=== PATIENT | female | born 1940 | race Caucasian/White ===

== ENCOUNTER 2021-02-08 06:40 | Day surgery (SDC) | payer MEDICARE, OTHER ==
[2021-02-08] VITALS (10 sets, daily range): BP systolic 142–156; BP diastolic 65–81
[~2021-02-08] VITALS: Ht 165.1 cm; Wt 89.5 kg
[2021-02-08] MEDS ORDERED: sodium bicarbonate (8.4%) inj. 150 ML in dextrose 5%-water 1,000 ML IV ONE (07:20)
[2021-02-08] MEDS ORDERED: diphenhydrAMINE 25mg capsule PO PRN (07:20)
[2021-02-08] MEDS ORDERED: WARF-65 PO (07:31)
[2021-02-08] MEDS ORDERED: AMIO200T61 PO (07:31)
[2021-02-08] MEDS ORDERED: LORA-269 PO (07:31)
[2021-02-08] MEDS ORDERED: LISI20TA28 PO (07:31)
[2021-02-08] MEDS ORDERED: LINA290C PO (07:31)
[2021-02-08] MEDS ORDERED: ROSU40TA22 PO (07:31)
[2021-02-08] MEDS ORDERED: CARV-50 PO (07:31)
[2021-02-08] MEDS ORDERED: NIFE90TA61 PO (07:31)
[2021-02-08] MEDS ORDERED: LEVO100T PO (07:31)
[2021-02-08] MEDS ORDERED: WARF-55 PO (07:31)
[2021-02-08] MEDS ORDERED: FAMO20TA8 PO (07:31)
[2021-02-08] MEDS ORDERED: DOCUSATE (07:33)
[2021-02-08] MEDS ORDERED: ASPI-1265 PO (07:33)
[2021-02-08] MEDS ORDERED: MULT-1085 PO (07:33)
[2021-02-08 07:50] LABS: BASOPHILS % (AUTO) 0.4 % (0-1); EOSINOPHILS # (AUTO) 0.3 X10'3 (0-0.9); EOSINOPHILS % (AUTO) 2.6 % (0-6); HEMATOCRIT 36.2 % (35.0-45.0); HEMOGLOBIN 11.9 g/dl (12.0-16.0); LYMPHOCYTES # (AUTO) 2.3 X10'3 (1.1-4.8); LYMPHOCYTES % (AUTO) 23.8 % (21-51); MEAN CORPUSCULAR HEMOGLOBIN 29.3 PG (27.0-31.0); MEAN CORPUSCULAR HGB CONC 32.7 g/dL (33.0-36.5); MEAN CORPUSCULAR VOLUME 89.7 FL (78-98); MEAN PLATELET VOLUME 8.7 FL (7.4-10.4); MONOCYTES # (AUTO) 0.8 X10'3 (0-0.9); MONOCYTES % (AUTO) 8.6 % (2-12); NEUTROPHILS # (AUTO) 6.3 X10'3 (1.8-7.7); NEUTROPHILS % (AUTO) 64.6 % (42-75); PLATELET COUNT 200 X10'3 (140-440); RED BLOOD COUNT 4.04 X10'6 (4.20-5.60); RED CELL DISTRIBUTION WIDTH 14.9 % (11.5-14.5); WHITE BLOOD COUNT 9.8 X10'3 (4.5-11.0)
[2021-02-08 07:57] LABS: ALBUMIN 3.7 G/DL (3.4-5.0); ANION GAP 13 (8-16); BLOOD UREA NITROGEN 37 MG/DL (7-18); BUN/CREATININE RATIO 14.8 (6.6-38.0); CALCIUM 7.9 MG/DL (8.5-10.1); CHLORIDE 112 MMOL/L (99-107); GLUCOSE 101 MG/DL (70-104); MAGNESIUM 1.9 MG/DL (1.5-2.4); POTASSIUM 3.9 MMOL/L (3.5-5.1); SODIUM 145 MMOL/L (135-145); TOTAL CARBON DIOXIDE 19.9 MMOL/L (24-32); eGFR 19 ML/MIN
[2021-02-08] MEDS ORDERED: heparin 1,000unit/ml 10ml vial 10 ML ONE (10:47)
[2021-02-08] MEDS ORDERED: LIDOcaine 1% (10mg/ml)w/preservative injection 20ml MDV ONE (10:47)
[2021-02-08] MEDS ORDERED: fentaNYL/PF 50MCG/1 ML 2ML syringe ONE (10:47)
[2021-02-08] MEDS ORDERED: iohexol 350 MG/ML 50ML vial IV ONE (10:47)
[2021-02-08] MEDS ORDERED: iohexol 350MG/ML 100ml bottle IV ONE ×2 (10:47→13:07)
[2021-02-08] MEDS ORDERED: midazolam 1 mg/ML 2ml injection ONE ×2 (10:47→13:04)
[2021-02-08] MEDS ORDERED: clopidogrel 300mg tablet ONE (13:24)
[2021-02-08] MEDS ORDERED: HYDROcodone/acetaminophen 10/325mg tab PO PRN (14:10)
[2021-02-08] MEDS ORDERED: normal saline 1000ml 1,000 ML IV SCH (14:10)
[2021-02-08] MEDS ORDERED: acetaminophen 325mg tablet PO PRN (14:10)
[2021-02-08] MEDS ORDERED: ondansetron/PF 4mg/2ml inj IV PRN (14:10)
[2021-02-08] MEDS ORDERED: HYDROcodone/acetaminophen 5mg/325mg tablet PO PRN (14:10)
[2021-02-08] MEDS ORDERED: proCHLORperazine 10 MG/2 ml inj IV PRN (14:10)
== END 2021-02-08 17:00 | disposition home or self-care (01) ==
LOC: SSTAY O 06:40
PROVIDERS: ATTEND Internal Medicine Cardiovascular Disease
DX: R94.39 Abnormal result of other cardiovascular function study (principal); I25.10 Atherosclerotic heart disease of native coronary artery without angina pectoris; I48.0 Paroxysmal atrial fibrillation; I10 Essential (primary) hypertension; E78.5 Hyperlipidemia, unspecified; E03.9 Hypothyroidism, unspecified; J44.9 Chronic obstructive pulmonary disease, unspecified; Z86.711 Personal history of pulmonary embolism; Z79.899 Other long term (current) drug therapy; Z86.73 Personal history of transient ischemic attack (TIA), and cerebral infarction without residual deficits; Z87.891 Personal history of nicotine dependence; Z90.2 Acquired absence of lung [part of]; Z83.6 Family history of other diseases of the respiratory system; Z83.3 Family history of diabetes mellitus; Z82.49 Family history of ischemic heart disease and other diseases of the circulatory system
CPT/HCPCS: 36415; 80048; 83735; 85025; 85610; 93005; 93458; 93571; 93572; 99152; 99153; C1751; C1760; C1769; C1874; C1894; C9600; J1644; J2001; J2250; J3010; Q9967; A4620; A6258

== ENCOUNTER → 2024-11-08 | Outpatient (CLI) | payer MEDICARE, OTHER ==
[~2024-11-08] MED LIST: AMI200T PO; ASPI-1265 PO; CARV-50 PO; DOCUSATE; FAMO20TA8 PO; LEVO100T PO; LINA290C PO; LISI20TA28 PO; LORA-269 PO; MULT-1085 PO; NIFE90TA61 PO; ROSU40TA89 PO; WARF-55 PO; WARF-65 PO
--- NOTE | 2024-11-09 06:46 | CONSULTATION ---
DATE OF CONSULTATION: 11/08/2024 DICTATING PHYSICIAN: Susi Pearson M.S., [facility] MODIFIED BARIUM SWALLOW STUDY REPORT REFERRING PHYSICIAN: Julianna Oneil MD HISTORY OF PRESENT ILLNESS: The patient is an 84-year-old female who consents to this evaluation. The patient's daughter was present for this evaluation. History was obtained from the patient, the patient's daughter, and medical records. The patient reports symptoms of dysphagia including having 5 choking episodes in the past 2-3 weeks. She reports 4 of them have been on liquids and 1 of them was on her food at breakfast. She felt something go in the wrong tube and it scared her. She was coughing to the point where she was unable to breathe. She has been trying to use a chin tuck, which helps her feel more comfortable when swallowing, but the coughing episodes are still occurring. The patient has a history of a CVA about 30 years ago and did not require speech therapy at that time. She has also had pneumonia twice about 6-8 years ago. 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 CURRENT DIET: The patient is currently on a regular textured, thin liquid diet with no restrictions. MEDICATIONS: Amiodarone 100 mg once daily orally, levothyroxine 100 mcg once daily orally, multivitamin, carvedilol 12.5 mg twice daily orally, docusate 100 mg twice daily, sodium bicarbonate 650 mg twice daily orally, famotidine 20 mg once daily orally, rosuvastatin 40 mg once daily orally, warfarin 5 mg once daily orally, lorazepam 1 mg once daily orally, Lasix 20 mg once daily orally. PARAMETERS: The patient is seated in a lateral 90-degree view and administered the usual protocol of thin and nitrous thick liquids, puree and solid consistencies, as well as self-regulated boluses of thin liquids from a cup. RESULTS: In the oral stage of the swallow, oral transit is characterized by reduced lingual palatal stripping secondary to reduced tongue base retraction. There is a mild to moderate oral residue across the tongue and tongue base. In the pharyngeal stage of the swallow, tongue base retraction is mild to moderately reduced. Swallow initiation is delayed to the level of the pyriform for all bolus sizes of thin liquid consistencies, but not for the other consistencies. Anterior movement at the posterior pharyngeal wall was observed. Elevation of the hyothyroid complex was accomplished with full range of motion. There is a mild to moderate pharyngeal residue residing at the level of the vallecula. In terms of airway safety, the patient demonstrated with penetration for 3 mL, 5 mL and self-regulated boluses of thin liquids from a cup. This was due to that delayed swallow initiation. At no time was she noted to aspirate. ANTERIOR, POSTERIOR VIEW: In the AP plane, the bolus splits symmetrically between the pyriform sinuses and there was no proximal movement noted. 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 Delayed small initiation to the level of the pyriform for thin liquids, mild to moderate residue in the oropharyngeal cavities and penetration of thin-liquid boluses. With the delayed swallow initiation at the level of the piriform, a neurological reason cannot be ruled out as this can occur when cranial nerve 9 does not trigger the swallow reflex as it should. DIAGNOSES: R13.12, dysphagia oropharyngeal phase; R05.9, cough. PATIENT EDUCATION: Immediately following modified barium swallow study, the patient was able to view the results. The patient and daughter were able to see how the current status of the oral motor and swallowing mechanism decreases her ability to swallow normally. She was educated on a recommendation for speech therapy and agreed to participate at this time. RECOMMENDATIONS: It is recommended that the patient receive swallowing therapy one time weekly for 12 weeks to improve the strength and range of motion of the swallowing musculature to ensure airway safety protection and prevent aspiration. LONG-TERM GOALS: The patient will maintain adequate hydration/nutrition with optimum safety and efficiency of swallow function on p.o. intake without overt signs and symptoms of aspiration for the highest possible diet level. PROGNOSIS: Prognosis for the patient is good based upon patient motivation and family support. FUNCTIONAL ORAL INTAKE: The FOIS was administered to establish and document a change in the functional eating activities of this patient over time. This is a 7-point scale with 1 indicating no oral intake and totally tube dependent and 7 indicating total oral intake with no restrictions. The patient received a 7, which indicates she has a total oral intake with no restriction. G-CODE: [id number]. Thank you very much for asking me to participate in the care of this kind patient. Should you have any questions regarding this evaluation or recommendations, please do not hesitate to contact me at [phone]. During this examination, 3 minutes 17 seconds of fluoroscopy time and 31.6 CAK mGy were utilized. Susi Pearson M.S., [facility] TID: [id number] RECEIPT: [id number] CHARLES/OLIVIA
== END | disposition home or self-care (01) ==
LOC: RAD 14:11
PROVIDERS: ATTEND Family Medicine
DX: R13.12 Dysphagia, oropharyngeal phase (principal); R05.9 Cough, unspecified
CPT/HCPCS: 74230

== ENCOUNTER 2024-11-18 06:16 | Day surgery (SDC) | payer MEDICARE, OTHER ==
[2024-11-18] VITALS (9 sets, daily range): BP systolic 139–166; BP diastolic 66–77; PULSE 16–69; RESP 14–20; O2SAT 88–99
[~2024-11-18] VITALS: Ht 165.1 cm; Wt 85.0 kg
[2024-11-18] MEDS ORDERED: AMIO100T4 PO (07:01)
[2024-11-18] MEDS ORDERED: DOCU-148 PO (07:01)
[2024-11-18] MEDS ORDERED: SODI650T29 PO (07:01)
--- NOTE | 2024-11-18 07:01 | ELECTROCARDIOGRAPH REPORT ---
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 Katherine Walton Measurements Intervals [place] Rate: 65 P: 50 AL: 175 QRS: 5 QRSD: 109 T: 46 QT: 469 QTc: 488 Interpretive Statements Sinus rhythm Poor R Wave progression Electronically Signed On 11-18-2024 20:56:[address] Katherine Walton Please click the below link to view image of tracing.
[2024-11-18 07:21] LABS: BASOPHILS % (AUTO) 0.3 % (0-1); EOSINOPHILS # (AUTO) 0.1 X10'3 (0-0.9); EOSINOPHILS % (AUTO) 1.2 % (0-6); HEMATOCRIT 31.8 % (35.0-45.0); HEMOGLOBIN 10.2 g/dl (12.0-16.0); LYMPHOCYTES # (AUTO) 1.5 X10'3 (1.1-4.8); LYMPHOCYTES % (AUTO) 13.4 % (21-51); MEAN CORPUSCULAR HGB CONC 32.1 g/dL (33.0-36.5); MEAN CORPUSCULAR VOLUME 87.2 FL (78-98); MONOCYTES # (AUTO) 1.2 X10'3 (0-0.9); MONOCYTES % (AUTO) 10.9 % (2-12); NEUTROPHILS # (AUTO) 8.2 X10'3 (1.8-7.7); NEUTROPHILS % (AUTO) 74.2 % (42-75); PLATELET COUNT 246 X10'3 (140-440); RED BLOOD COUNT 3.65 X10'6 (4.20-5.60); RED CELL DISTRIBUTION WIDTH 16.8 % (11.5-14.5)
[2024-11-18 07:22] LABS: ALBUMIN 3.3 G/DL (3.4-5.0); ANION GAP 11 (8-16); BLOOD UREA NITROGEN 38 MG/DL (7-18); BUN/CREATININE RATIO 11.9 (10.0-20.0); CALCIUM 9.5 MG/DL (8.5-10.1); CHLORIDE 95 MMOL/L (99-107); GLUCOSE 115 MG/DL (70-104); MAGNESIUM 2.2 MG/DL (1.5-2.4); POTASSIUM 3.6 MMOL/L (3.5-5.1); SODIUM 136 MMOL/L (135-145); TOTAL CARBON DIOXIDE 30.5 MMOL/L (24-32); eCRCL 12 ML/MIN; eGFR 14 ML/MIN
[2024-11-18 07:25] LABS: INR 1.5 INR; PROTHROMBIN TIME 14.5 SECONDS (9.0-12.0)
[2024-11-18] MEDS: diphenhydrAMINE 25mg capsule PO PRN (07:50)
[2024-11-18] MEDS: sodium bicarbonate 1meq/ml syr 150 ML in dextrose 5%-water 1,000 ML IV ONE (07:52)
[2024-11-18] MEDS: normal saline 1,000 ML IV SCH (07:53)
[2024-11-18] MEDS ORDERED: LIDOcaine 1% (10mg/ml) 2ml vial ONE (08:40)
[2024-11-18] MEDS ORDERED: fentaNYL/PF 50MCG/1 ML 2ML syringe ONE (08:40)
[2024-11-18] MEDS ORDERED: verapamil 2.5 mg/ml inj IV ONE (08:40)
[2024-11-18] MEDS ORDERED: midazolam 1 mg/ML 2ml injection ONE (08:40)
[2024-11-18] MEDS ORDERED: nitroGLYCERIN 500mcg/5mL D5W 0 ML IV ONE (08:41)
[2024-11-18] MEDS ORDERED: heparin 1,000unit/ml 10ml vial 10 ML ONE (08:41)
[2024-11-18] MEDS ORDERED: iohexol 350MG/ML 100ml bottle IV ONE ×2 (08:41→10:04)
[2024-11-18] MEDS ORDERED: iohexol 350 MG/ML 50ML vial IV ONE (08:41)
[2024-11-18] MEDS ORDERED: LIDOcaine 1% 30ml preserv. free vial ONE (09:32)
--- NOTE | 2024-11-18 11:08 | CARDIOLOGY REPORT ---
DATE OF SERVICE: 11/18/2024 DICTATING PHYSICIAN: KEIRA ALEJO DO CARDIAC CATHETERIZATION REPORT REFERRING PHYSICIAN: Anna Roach MD. CLINICAL HISTORY: This 84-year-old woman has been experiencing episodes of chest pain, somewhat suggestive of angina pectoris. Symptoms are usually brought on by exertion and relieved by rest. Because of the nature of the pain, a cardiac catheterization was ordered. The patient also has significant lung disease, having had an MRSA abscess and empyema. Because of concerns about her chest pain and the prospect of pulmonary hypertension, a cardiac catheterization was ordered. PROCEDURES PERFORMED: * Right heart catheterization. * Left heart catheterization. * Selective coronary arteriography. * IFR (combined proximal, mid, and distal RCA). * Percutaneous arteriotomy closure (Mynx). * A 45-minute of conscious sedation and supervision. DESCRIPTION OF PROCEDURE: The patient was sedated with fentanyl and Versed. She was then prepared and draped in the usual manner. The right inguinal area was liberally infiltrated with 1% lidocaine. Using a micropuncture set and a Seldinger technique, an 8-Togolese sheath was placed in the femoral vein and a 7-Togolese sheath was placed in the common femoral artery, 3,000 units of heparin were then given. Right heart catheterization was performed using a 7.5-[place] catheter. Cardiac output was determined using a thermodilution technique. Left heart catheterization was performed with a 6-Togolese pigtail catheter. The patient did not have a left ventriculogram because the creatinine is 2.2, need for dialysis, and a high LVEDP. CORONARY ARTERIOGRAPHY: The coronary arteriography was performed using 6-Togolese #4 left and right Armando catheters. IFR: The right coronary was engaged with a 6-Togolese side-holed XB RCA guiding catheter. After proper equalization of the pressure wire, it was passed 3 moderate lesions in the proximal, mid, and mid-distal right coronary. In this location, the IFR was 0.91, which was not considered significant. The arterial sheath was removed and hemostasis was achieved with a Mynx device. Direct pressure was applied to the femoral venous access site. RESULTS: HEMODYNAMIC DATA: Mean right atrial pressure was 27 mmHg. Right ventricular pressure was 77/28 mmHg. Pulmonary arterial pressure was 66/17 mmHg. Left ventricular end-diastolic pressure was 35 mmHg. Cardiac output by thermodilution technique was 6.4 liters per minute. CORONARY ARTERIOGRAPHY: The coronary arteriograms were technically satisfactory. LEFT MAIN CORONARY ARTERY: The left main was a large unobstructed vessel bifurcating into the left anterior descending and circumflex coronary arteries. LEFT ANTERIOR DESCENDING CORONARY ARTERY: The LAD was a medium-sized vessel that did not have a fully transapical distribution. There was a very small caliber very proximal first diagonal. There was a small to medium-sized bifurcated second diagonal, both the diagonals taking their origin proximally. The origin of the second diagonal was narrowed by perhaps 50%, but it was smaller than 2 mm in size. The main stem LAD contained luminal irregularities. There were no clear-cut obstructive lesions in this vessel. CIRCUMFLEX CORONARY ARTERY: The circumflex was a large main stem vessel. There was a large obtuse marginal branch and there was a small posterolateral branch. There were luminal irregularities, but no obstructive lesions in the circumflex coronary artery. RIGHT CORONARY ARTERY: The right coronary was a large main stem vessel. There was a small to medium-sized posterior descending branch and 4 small caliber posterolateral branches. The proximal right coronary was narrowed by about 30% and the mid vessel was narrowed by about 30%. Overlying the acute marginal band, there was a third 30% narrowing. IFR: The IFR is already noted with 0.91, suggesting that even with 3 modest lesions, there was no significant obstruction to flow within the right coronary. CONCLUSIONS: * No evidence for significant high-grade obstructive coronary artery disease. There was no more than about a 50% narrowing at the origin of a small to medium-sized LAD diagonal with no obstructive lesions in the main stem LAD. Otherwise, there were just luminal irregularities in other locations within the circumflex and right coronary arteries. * Left ventricular end diastolic pressure was 30 mmHg. A left ventriculogram was not performed because the creatinine was 2.2, the need for dialysis and an LVEDP of 35mmHg. * There was moderate plus pulmonary hypertension. Pulmonary arterial pressure was measured at 66/17 mmHg. RECOMMENDATIONS: Ongoing medical therapy. KEIRA ALEJO DO TID: [id number] RECEIPT: [id number] [facility]
[2024-11-18] MEDS ORDERED: HYDROcodone/acetaminophen 5mg/325mg tablet PO PRN (11:50)
[2024-11-18] MEDS ORDERED: proCHLORperazine 10 MG/2 ml inj IV PRN (11:50)
[2024-11-18] MEDS ORDERED: HYDROcodone/acetaminophen 10/325mg tab PO PRN (11:50)
[2024-11-18] MEDS ORDERED: ondansetron/PF 4mg/2ml inj IV PRN (11:50)
== END 2024-11-18 13:55 | disposition home or self-care (01) ==
LOC: SSTAY O 06:16
PROVIDERS: ATTEND Internal Medicine Cardiovascular Disease
DX: I25.118 Atherosclerotic heart disease of native coronary artery with other forms of angina pectoris (principal); R07.89 Other chest pain; I27.20 Pulmonary hypertension, unspecified; J43.9 Emphysema, unspecified; Z79.899 Other long term (current) drug therapy; I35.0 Nonrheumatic aortic (valve) stenosis; I48.0 Paroxysmal atrial fibrillation; I10 Essential (primary) hypertension; E78.5 Hyperlipidemia, unspecified; F17.210 Nicotine dependence, cigarettes, uncomplicated; J44.9 Chronic obstructive pulmonary disease, unspecified; E03.9 Hypothyroidism, unspecified; D64.9 Anemia, unspecified; G47.30 Sleep apnea, unspecified; Z98.890 Other specified postprocedural states; Z86.711 Personal history of pulmonary embolism
CPT/HCPCS: 36415; 80048; 83735; 85025; 85610; 93005; 93460; 93571; 99152; 99153; A4620; A6258; C1725; C1751; C1769; C1894; J1644; J2003; J2250; J3010; J3490; J7030; J7070; Q0163; Q9967

== ENCOUNTER 2025-01-23 23:28 | Emergency (ER) | payer MEDICARE, OTHER ==
[~2025-01-23] VITALS: Ht 165.1 cm; Wt 82.6 kg
[~2025-01-23 23:28] MED LIST changes: -AMI200T PO; +AMIO100T4 PO; -ASPI-1265 PO; +DOCU-148 PO; -DOCUSATE; -LINA290C PO; -LISI20TA28 PO; -NIFE90TA61 PO; +SODI650T29 PO; -WARF-65 PO
[2025-01-23 23:30] VITALS: BP 153/78; PULSE 66; RESP 16; TEMP 97.1; O2SAT 96
== END 2025-01-24 02:30 | disposition left against medical advice (07) ==
LOC: ER 23:29
DX: S41.112A Laceration without foreign body of left upper arm, initial encounter (principal); I48.91 Unspecified atrial fibrillation; Z88.8 Allergy status to other drugs, medicaments and biological substances; Z53.21 Procedure and treatment not carried out due to patient leaving prior to being seen by health care provider; X58.XXXA Exposure to other specified factors, initial encounter; Y93.89 Activity, other specified; Y92.89 Other specified places as the place of occurrence of the external cause; Y99.8 Other external cause status

== ENCOUNTER 2025-05-25 20:10 | Emergency (ER) | payer MEDICARE, OTHER ==
[~2025-05-25] VITALS: Ht 162.6 cm; Wt 80.0 kg
[~2025-05-25 20:10] MED LIST changes: -MULT-1085 PO
--- NOTE | 2025-05-25 21:37 | Physician Documentation ---
History of Present Illness ~ Chief Complaint: Wound Stated Complaint: R ARM WOUND Time Seen by MD: 21:24 OK to notify your PCP?: Yes Source: patient Mode of Arrival: POV Exam Limitations: no limitations HPI This is a 85-year-old female who comes in for a skin tear to the right forearm. The patient states her dog jumped up in his scratched her right forearm positive be small skin tear. The patient states she is on Coumadin with the and has had a continuous so steady ooze of blood from the wound. The patient states she is taking Coumadin because she was allergic to Eliquis. Tetanus within 5 years?: No Medication Reconciliation Allergies: Coded Allergies: apixaban (Verified Allergy, Unknown, 11/18/24) Scheduled Amiodarone HCl (Amiodarone HCl), 1 TAB PO DAILY, (Reported) Carvedilol* (Coreg*), 0.5 TABLET PO BID, (Reported) Docusate Sodium (Colace), 1 CAP PO Q12H, (Reported) Famotidine (Famotidine), 1 TAB PO DAILY, (Reported) Levothyroxine Sodium (Synthroid), 1 TAB PO DAILY, (Reported) Lorazepam (Ativan), 1 MG PO DAILY, (Reported) Rosuvastatin Calcium (Rosuvastatin Calcium), 1 TAB PO DAILY, (Reported) Sodium Bicarbonate (Antacid), 1 TAB PO Q12H, (Reported) Warfarin Sodium (Warfarin Sodium), 1 TAB PO DAILY, (Reported) Physical Exam Vital Signs: Temperature: 98.6, Source: Temporal, Heart Rate: 64, Respiratory Rate: 16, BP: 150/60, Pulse Oximetry: 98, Weight: 80.000 Oxygen Flow Rate: 0 Pulse Oximetry Reflects: adequate oxygenation General Appearance: alert, WD/WN, no apparent distress Extremities To inspection of the right forearm the patient has a very small superficial skin tear of the right mid shaft dorsal forearm. It has a so steady ooze. No deep wound. Progress Results/Orders Results/Orders Vital Signs 05/25/25 20:17 Temp 98.6 Pulse 64 Resp 16 B/P (MAP) 150/60 Pulse Ox 98 O2 Flow Rate 0 Medical Decision Making Additional information obtaine: N/A Findings The skin tear right forearm. Wound care. Hemorrhaging. Differential Dx:Considerations: Include: Dressing change, Healing wound, Other Additional Comment Surgicel was applied I believe with the area with the circumferential dressing. The dressing was not too tight as with the the patient has a shunt in the same arm. Follow up with the primary care physician for recheck and keep the current dressing clean dry for two days. Return to the ER for any worsening or concerning symptoms Departure Disposition: HOME / SELF CARE / HOMELESS Impression: Primary Impression: Skin tear Discharge Instructions: Skin Tear Additional Instructions: Keep the current dressing clean dry and do not remove for two days. If you can of the time try to follow up with the primary care physician. Elevate the arm frequently. Return for bleeding through the dressings or any concerns Referrals: NO PRIMARY CARE PROVIDER (PCP) Signature Scribe Signature: No scribe Attestation: The note accurately reflects work and decisions made by me.Romana MORALES 05/25/25 21:37 ROMANA LEAVITT May 25, 2025 21:37
[2025-05-25 21:48] VITALS: BP 150/66; PULSE 62; RESP 18; TEMP 98.6; O2SAT 99
== END 2025-05-25 21:55 | disposition home or self-care (01) ==
LOC: ER 20:10
DX: S51.811A Laceration without foreign body of right forearm, initial encounter (principal); Z79.01 Long term (current) use of anticoagulants; Z79.899 Other long term (current) drug therapy; Z88.8 Allergy status to other drugs, medicaments and biological substances; X58.XXXA Exposure to other specified factors, initial encounter; Y93.89 Activity, other specified; Y92.89 Other specified places as the place of occurrence of the external cause; Y99.8 Other external cause status
CPT/HCPCS: 99282